=== PATIENT | male | born 1950 | race Caucasian/White ===

== ENCOUNTER 2025-05-29 14:47 | Emergency (ER) | payer BC, SELFPAY ==
[2025-05-29] VITALS (9 sets, daily range): BP systolic 123–150; BP diastolic 73–90; PULSE 57–78; RESP 7–17; TEMP 36.6–36.7; O2SAT 93–100; BMI 27.3
--- NOTE | 2025-05-29 15:00 | EKG12_ITS ---
Test Reason : SYNCOPE Blood Pressure : */* mmHG Vent. Rate : 55 BPM Atrial Rate : 55 BPM P-R Int : 198 ms QRS Dur : 88 ms QT Int : 452 ms P-R-T Axes : 44 25 41 degrees QTcB Int : 432 ms Sinus bradycardia Otherwise normal ECG Confirmed by ANA RICE, NAN ([id number]), editor magazine ALPESH SNIDER ([id number]) on 05/30/2025 10:44:49 AM Referred By: Confirmed By: NAN PEREZ MD
--- NOTE | 2025-05-29 15:01 | EX.ED.DYSGE1 ---
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 Location: Work Current Severity: Gone Maximum Severity: Moderate Worsened by: Nothing Relieved by: not applicable Associated Symptoms Associated Symptoms: Documented detailed chief complaint n the Narrative Narrative: Patient is a 74-year-old male. He has history hypertension and hypercholesterolemia. He has no known history of cardiac disease. He was at work. He was helping a customer set up there [employer]. He had abrupt onset of lightheadedness/wooziness/dizziness with nausea, diaphoresis and possibly pallor. There was no vomiting. He did not lose consciousness. This lasted approximately 10 seconds. He denies headache. He denied double vision, blurred vision or change in vision. He denied trouble with speech or swallowing. He denied cardiac or respiratory symptoms. His only GI symptom was the nausea. He denies recent black or maroon-colored stool. He denies recent infectious symptoms and specifically denies fever or chills. Prior similar symptoms: No Recent Illness/Hospitalization: No [facility] Medical History (Updated 05/29/25 @ 17:[address] Paulo Conklin MD) Hypertension Home Medications ?Medication ?Instructions ?Recorded ?Last Taken ?Type nadolol PO DAILY 05/29/25 Unknown History Allergy/AdvReac Type Severity Reaction Status Date / Time No Known Allergies Allergy Verified 05/29/25 14:48 Surgical History History of decompression of both ulnar nerves History of appendectomy Social History (Updated 05/29/25 @ 15:[address] Paulo Conklin MD) household members: spouse Smoking Status: Never smoker ROS ROS ED Constitutional Constitutional ED: Denies chills, fever(s), subjective or sweats Eyes Eyes: Denies blurry vision or change in vision ENT ENT ED: Denies ear pain or rhinorrhea Cardiovascular Cardiovascular: Denies chest pain or palpitations Respiratory/Chest Respiratory/Chest: Denies cough, dyspnea or dyspnea on exertion Gastrointestinal Gastrointestinal: Reports nausea; Denies abdominal pain, constipation, diarrhea, melena or vomiting Genitourinary Genitourinary ED: Denies dysuria, hematuria or urinary frequency Musculoskeletal Musculoskeletal: Denies back pain or neck pain Integumentary Denies abscess, Abrasions or rash Neurologic Neurologic: Denies paresthesias or weakness Psychiatric Psychiatric: Denies anxiety or depression Endocrine Endocrinology: Denies cold intolerance or heat intolerance Hematologic/Lymphatic Hematologic/Lymphatic: Reports systems reviewed and no addt'l complaints, except as documented EXAM Physical Exam Const Vital Signs: 05/29/25 14:48 05/29/25 14:57 05/29/25 15:03 Temperature 98.1 F Temperature Source Oral Pulse Rate 58 L Pulse Rate [Lying] Pulse Rate [Sitting (for 1 minute prior to obtaining)] Pulse Rate [Standing (for 1 minute prior to obtaining)] Respiratory Rate 11 L Respiratory Effort Normal Respiratory Pattern Normal Blood Pressure 145/78 H Blood Pressure [Lying] Blood Pressure [Sitting (for 1 minute prior to obtaining)] Blood Pressure [Standing (for 1 minute prior to obtaining)] Blood Pressure Mean 100 Blood Pressure Mean [Lying] Blood Pressure Mean [Sitting (for 1 minute prior to obtaining)] Blood Pressure Mean [Standing (for 1 minute prior to obtaining)] Pulse Ox 99 Oxygen Delivery Method Room Air 05/29/25 15:05 05/29/25 15:27 05/29/25 15:30 Temperature Temperature Source Pulse Rate 57 L 58 L Pulse Rate [Lying] 68 Pulse Rate [Sitting (for 1 minute prior to obtaining)] 65 Pulse Rate [Standing (for 1 minute prior to obtaining)] 64 Respiratory Rate 7 L 17 Respiratory Effort Respiratory Pattern Blood Pressure 128/73 H Blood Pressure [Lying] 145/78 H Blood Pressure [Sitting (for 1 minute prior to obtaining)] 146/79 H Blood Pressure [Standing (for 1 minute prior to obtaining)] 123/90 H Blood Pressure Mean 90 Blood Pressure Mean [Lying] 100 Blood Pressure Mean [Sitting (for 1 minute prior to obtaining)] 101 Blood Pressure Mean [Standing (for 1 minute prior to obtaining)] 101 Pulse Ox 94 94 Oxygen Delivery Method Room Air 05/29/25 16:00 05/29/25 16:47 05/29/25 16:52 Temperature Temperature Source Pulse Rate 58 L 68 Pulse Rate [Lying] 61 Pulse Rate [Sitting (for 1 minute prior to obtaining)] 61 Pulse Rate [Standing (for 1 minute prior to obtaining)] 68 Respiratory Rate 17 13 Respiratory Effort Respiratory Pattern Blood Pressure 144/80 H Blood Pressure [Lying] 132/79 H Blood Pressure [Sitting (for 1 minute prior to obtaining)] 144/83 H Blood Pressure [Standing (for 1 minute prior to obtaining)] 148/80 H Blood Pressure Mean 101 Blood Pressure Mean [Lying] 96 Blood Pressure Mean [Sitting (for 1 minute prior to obtaining)] 103 Blood Pressure Mean [Standing (for 1 minute prior to obtaining)] 102 Pulse Ox 93 100 Oxygen Delivery Method Room Air 05/29/25 17:48 Temperature 97.8 F Temperature Source Pulse Rate 78 Pulse Rate [Lying] Pulse Rate [Sitting (for 1 minute prior to obtaining)] Pulse Rate [Standing (for 1 minute prior to obtaining)] Respiratory Rate 14 Respiratory Effort Respiratory Pattern Blood Pressure 150/88 H Blood Pressure [Lying] Blood Pressure [Sitting (for 1 minute prior to obtaining)] Blood Pressure [Standing (for 1 minute prior to obtaining)] Blood Pressure Mean 108 Blood Pressure Mean [Lying] Blood Pressure Mean [Sitting (for 1 minute prior to obtaining)] Blood Pressure Mean [Standing (for 1 minute prior to obtaining)] Pulse Ox 100 Oxygen Delivery Method Repeat orthostatic vitals were negative. Positive well nourished and well developed General Appearance ED: well developed, diaphoretic and NAD; Negative for cyanotic HEENT Reports moist mucous membranes HEENT Narrative: Head is atraumatic and normocephalic. Ears normal. Nares patent. Posterior pharynx is normal. Uvula midline. No deviation with protrusion. Eyes PERRL General Eye ED: Negative for pale conjunctiva or scleral icterus Neck no lymphadenopathy, supple and no JVD Chest Wall inspection of chest normal and palpation of chest normal Resp normal respiratory effort and clear to auscultation bilaterally Cardio regular rhythm, S1 normal heart sound, S2 normal heart sound and no murmurs Rate: bradycardia GI normal to inspection, nondistended, normoactive bowel sounds, non-tender, non-distended and no masses; Negative for hepatosplenomegaly Auscultation: normoactive bowel sounds Back/Spine no CVA tenderness Extremity normal to inspection General Extremety ED: Negative for edema or tenderness General Extremity: Negative for edema Neuro oriented x3, CN's II-XII intact bilaterally and no sensory deficits noted Neuro Narrative: There is no dysmetria. Romberg with eyes open and close was negative. Gait was observed and normal. The eye askew test was negative. Patient was not able to walk without falling when asked to perform tandem gait. Patient states he had a scan to evaluate this because this has been a chronic issue. Mackey-Hallpike maneuver was negative. Sensorium / Orientation: alert Motor Exam: strength 5/5 throughout Psych mental status grossly normal Skin no rashes or lesions noted, no wounds and skin turgor normal Skin Narrative: Patient is still slightly diaphoretic. MDM MDM MDM Narrative Medical decision making narrative: Patient is bradycardic. Will obtain EKG to see if there is any findings that would raise concern for dysrhythmia preexcitation syndrome Porter Long Ganong syndrome, WPW, prolonged QT etc. He was placed on a monitor. CBC was obtained assess H&H. BMP to assess renal function and electrolytes. Orthostatic vital signs since he did complain of some/mild lightheadedness with standing. History & Record Review Additional record(s) reviewed:: Prior ED visit (ER visit November 2017 for laceration scalp. Patient was seen by Dr. Webster.) Lab Data Attestation: I reviewed the patient's lab results. Lab results narrative: Electrolyte panel is remarked for slight elevation of BUN to creatinine ratio otherwise negative. Labs: Laboratory Results - last 24 hr 05/29/25 15:00 WBC 7.6 RBC 5.00 Hgb 14.8 Hct 44.9 MCV 89.8 MCH 29.6 MCHC 33.0 RDW Std Deviation 40.7 RDW Coeff of Thor 12.4 Plt Count 206 MPV 10.5 Immature Gran % (Auto) 0.300 Neut % (Auto) 62.7 Lymph % (Auto) 27.1 [place] % (Auto) 7.8 Eos % (Auto) 1.3 Baso % (Auto) 0.8 Absolute Neuts (auto) 4.8 Absolute Lymphs (auto) 2.05 Nucleated RBC % 0 Sodium 140 Potassium 4.1 Chloride 105 Carbon Dioxide 22.6 Anion Gap 12 BUN 21 H Creatinine 0.97 Estim Creat Clear Calc 70.03 Est GFR (MDRD) Non-Af 83 BUN/Creatinine Ratio 21.5 H Glucose 90 Calcium 9.0 EKG Initial EKG: Attestation: I personally reviewed and interpreted this EKG as follows: Interpretation: Sinus Bradycardia (Normal other than the bradycardia. Rate is 55. NV was 198 ms. QS duration 88 ms. QT duration 452 ms. [place] is normal) Treatment and Re-Evaluation :: Patient had greater than 20 mm drop in his systolic pressure. He was symptomatic. He did not have a reflex tachycardia presumed because he is on a beta-amna. Comments:: Patient was reassessed at 1730. He feels better after the fluids. Orthostatics were negative. Will discharge to home. He was informed of his results and that he needs to increase his fluid intake. He states he has not had anything to eat all day or drink anything all day. Discharge Plan Triage Chief Complaint: Syncope ED Provider: Paulo Conklin Dx/Rx/DC Orders Clinical Impression: Orthostatic hypotension, Acute prerenal azotemia, Acute dehydration, Elevated blood pressure reading Instructions: ED Hypertension, To Be Confirmed, ED Hypotension, Orthostatic Prescriptions: No Action nadolol PO DAILY Primary Care Provider: Rasheed Multani Referrals: Rasheed Multani MD [Primary Care Provider, Family Practice] - 1 Week Activity Restrictions/Additional Instructions: Your blood pressure is elevated. Recommend follow-up with your doctor for repeat blood pressure in 1 to 2-week Print Language: Afghan Disposition Disposition: Home, Self Care Discharge Date/Time: 05/29/25 17:49
[2025-05-29 15:35] LABS: Anion Gap 12 (5-15); BUN 21 mg/dL (4-19); BUN/Creat Ratio 21.5 RATIO (10-20); Calcium,Total 9.0 mg/dL (7.6-11.0); Carbon Dioxide 22.6 mmol/L (21.0-32.0); Chloride 105 mmol/L (98-108); Estimated Creatinine Clearance 70.03 ml/min (50-250); Glucose 90 mg/dL (70-99); Potassium 4.1 mmol/L (3.3-5.1)
[2025-05-29] MEDS: 0.9% Normal Saline (1000mL) 1,000 ML 1000 ML IV (15:46)
[2025-05-29 16:04] LABS: Hematocrit 44.9 % (40-54); Hemoglobin 14.8 g/dL (13.0-16.5); Immature Granulocytes Count 0.020 X10^3/uL (0.0-0.0); Mean Corp Hgb Conc 33.0 g/dL (32-36); Mean Corpuscular Volume 89.8 fL (80-94); Mean Platelet Vol. 10.5 fl (6.2-12.0); NRBC Flagged by Analyzer 0 % (0-5); Platelet Count 206 K/mm3 (150-450); RBC Distribution Width CV 12.4 % (11.6-14.6); RBC Distribution Width SD 40.7 fl (35.1-43.9); Red Blood Count 5.00 M/mm3 (4.6-6.2); White Blood Count 7.6 K/mm3 (4.4-11.0)
== END 2025-05-29 17:49 | disposition home or self-care (01) ==
PROVIDERS: Emergency Provider Emergency Medicine; PCP Family Medicine; Visit Provider Emergency Medicine
DX: I95.1 Orthostatic hypotension (principal); E86.0 Dehydration; R00.1 Bradycardia, unspecified; E78.00 Pure hypercholesterolemia, unspecified; R79.89 Other specified abnormal findings of blood chemistry; I10 Essential (primary) hypertension; Z79.899 Other long term (current) drug therapy; Z90.49 Acquired absence of other specified parts of digestive tract
CPT/HCPCS: 80048; 85025; 93005; 96360; 99285